=== PATIENT | female | born 1970 | race Caucasian/White ===

== ENCOUNTER 2020-05-28 10:35 | Emergency (ER) | payer BC, OTHER ==
[~2020-05-28] VITALS: Ht 165.1 cm; Wt 63.5 kg
[2020-05-28 10:43] VITALS: BP_SYST 127
--- NOTE | 2020-05-28 10:53 | NUR ---
Patient to ER bed 04 to gown for evaluation. Side rails up.
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
--- NOTE | 2020-05-28 11:17 | NUR ---
ER Dr. Kvng Toussaint at bedside examining patient.
--- NOTE | 2020-05-28 12:58 | NUR ---
Administered Motrin and [place] PO as ordered by Dr. Kvng Toussaint. Patient tolerated the medications well. See eMAR for details.
[2020-05-28] MEDS ORDERED: HYDROcodone/ACETAMIN 5-325 MG TAB (NORCO/ VICODIN) PO ONE (13:00)
[2020-05-28] MEDS ORDERED: IBUPROFEN 800 MG TABLET PO ONE (13:00)
[2020-05-28 13:17] VITALS: BP_SYST 127
--- NOTE | 2020-05-28 13:18 | NUR ---
Patient given written and verbal discharge instructions and verbalizes understanding. ER MD discussed with patient the results and treatment provided. Patient in stable condition. ID arm band removed. Rx of Motrin and [place] given. Patient educated on pain management and to follow up with PMD. Pain Scale 3/10 tolerable for pt. Opportunity for questions provided and answered. Medication side effect fact sheet provided.
== END 2020-05-28 13:18 | disposition home or self-care (01) ==
LOC: SED 10:35
DX: S13.4XXA Sprain of ligaments of cervical spine, initial encounter (principal); S33.5XXA Sprain of ligaments of lumbar spine, initial encounter; S20.219A Contusion of unspecified front wall of thorax, initial encounter; Z88.0 Allergy status to penicillin; Z88.4 Allergy status to anesthetic agent; Z88.6 Allergy status to analgesic agent; V49.9XXA Car occupant (driver) (passenger) injured in unspecified traffic accident, initial encounter; Y93.89 Activity, other specified; Y92.413 State road as the place of occurrence of the external cause; Y99.8 Other external cause status
CPT/HCPCS: 71045; 72040-TC; 72100-TC; 72170-TC; 99284